=== PATIENT | female | born 1990 | race Two or more races ===

== ENCOUNTER 2021-10-15 23:42 | Emergency (ER) | payer SELFPAY ==
[~2021-10-15] VITALS: Ht 182.9 cm; Wt 131.5 kg
[2021-10-15 23:43] VITALS: BP 145/61
== END 2021-10-16 00:45 | disposition left against medical advice (07) ==
LOC: ER 23:51
DX: R10.13 Epigastric pain (principal); R11.2 Nausea with vomiting, unspecified; Z53.21 Procedure and treatment not carried out due to patient leaving prior to being seen by health care provider